=== PATIENT | female | born 1945 | race Caucasian/White ===

== ENCOUNTER → 2020-09-25 | Day surgery (SDC) | payer MEDICARE ==
[~2020-09-25] VITALS: Ht 162.6 cm; Wt 59.0 kg
[~2020-09-25] MED LIST: ACTIGALL300 MG PO; ADVIL200 M1 PO; ATARAX25 MG PO; COLACE100 MG PO; LACTULOSE10 G/15 ML PO; LIPITOR 10MG TA10 MG PO; NORCO 5-325 TA1 EACH PO; RESTASIS1 EACH OU; ZOFRAN8 MG PO
[2020-09-25 09:22] LABS: HCT 30.5 % (37.0-47.0); HGB 10.1 g/dl (12.5-16.0); MCH 31.7 pg (25.0-31.0); MCHC 33.1 g/dL (32.0-36.0); MCV 95.6 fL (78.0-100.0); MPV 9.5 fL (6.0-9.5); RBC 3.19 M/uL (4.20-5.40); RDW 13.2 % (11.5-14.0); WBC 4.2 K/uL (4.0-10.5)
[2020-09-25 09:37] LABS: INR 0.99 (0.9-1.2); PROTHROMBIN TIME 12.5 SECONDS (11.8-13.4); PTT 25.9 SECONDS (24.4-34.7)
[2020-09-25 09:38] LABS: ALBUMIN 3.5 g/dL (3.4-5.0); BILIRUBIN - TOTAL 0.8 mg/dL (0.2-1.0); BUN/CREAT RATIO (CALC) 19.4 RATIO; CREATININE 1.03 mg/dL (0.51-0.95); GLOBULIN (CALCULATION) 3.6 g/dL; POTASSIUM 3.7 mmol/L (3.5-5.1); TOTAL PROTEIN 7.1 g/dL (6.4-8.2)
== END | disposition home or self-care (01) ==
LOC: FAS 08:12
PROVIDERS: Surgery
DX: D12.2 Benign neoplasm of ascending colon (principal); D12.4 Benign neoplasm of descending colon; D12.5 Benign neoplasm of sigmoid colon; C22.9 Malignant neoplasm of liver, not specified as primary or secondary; C24.0 Malignant neoplasm of extrahepatic bile duct; D63.0 Anemia in neoplastic disease; Z86.010 Personal history of colon polyps; Z88.0 Allergy status to penicillin; Z88.1 Allergy status to other antibiotic agents; F32.9 Major depressive disorder, single episode, unspecified; F41.9 Anxiety disorder, unspecified; Z87.891 Personal history of nicotine dependence; K57.30 Diverticulosis of large intestine without perforation or abscess without bleeding; D17.5 Benign lipomatous neoplasm of intra-abdominal organs
CPT/HCPCS: 36415; 80053; 85610; 85730; J2704; J7120